=== PATIENT | female | born 1935 | race African-American/Black ===

== ENCOUNTER 2016-08-22 00:26 | Emergency (ER) | payer MEDICARE ==
[~2016-08-22] VITALS: Ht 165.1 cm; Wt 81.8 kg
[2016-08-22] MEDS ORDERED: AMLO-511 PO (01:27)
[2016-08-22] MEDS ORDERED: CHOL200018 PO (01:27)
[2016-08-22] MEDS ORDERED: MULT-1259 PO (01:27)
[2016-08-22] MEDS ORDERED: LEVO88TA7 PO (01:27)
[2016-08-22] MEDS ORDERED: ASPI81 PO (01:27)
[2016-08-22] MEDS ORDERED: ROSU10 PO (01:27)
[2016-08-22] MEDS ORDERED: VITA100C5 PO (01:27)
[2016-08-22 02:45] LABS: APPEARANCE,URINE CLEAR (CLEAR); GLUCOSE, URINE (UA) NEGATIVE (NEGATIVE); KETONES,URINE NEGATIVE (NEGATIVE); LEUKOCYTE ESTERASE ,URINE MODERATE (NEGATIVE); OCCULT BLOOD,URINE NEGATIVE (NEGATIVE); PROTEIN,URINE NEGATIVE (NEGATIVE)
[2016-08-22 02:51] LABS: ADD UA MICROSCOPIC YES
[2016-08-22 03:04] LABS: RBC,URINE 0-2 /HPF (0-2)
[2016-08-22 03:05] LABS: SQUAMOUS EPITHELIAL CELL,UR Few /LPF (None Seen)
[2016-08-22 05:41] VITALS: BP 148/76
== END 2016-08-22 05:59 | disposition home or self-care (01) ==
LOC: EMS 00:28
DX: I10 Essential (primary) hypertension (principal); E03.9 Hypothyroidism, unspecified; Z79.82 Long term (current) use of aspirin
CPT/HCPCS: 87086; 99284

== ENCOUNTER 2024-05-12 08:55 | Emergency (ER) | payer MEDICARE, OTHER ==
[~2024-05-12] VITALS: Ht 165.1 cm; Wt 85.9 kg
[2024-05-12 08:55] VITALS: TEMP 97.6
[~2024-05-12 08:55] MED LIST: AMLO-257 PO; ASPI-1450 PO; CHOL200018 PO; LEVO88TA7 PO; MULT-1259 PO; ROSU10TA72 PO; VITA100C5 PO
[2024-05-12 10:40] LABS: BASOPHILS % (AUTO) 1.7 % (0.0-2.0); EOSINOPHILS % (AUTO) 1.9 % (1.0-6.0); HEMATOCRIT 43.4 % (36-46); HEMOGLOBIN 14.6 g/dL (12.0-16.0); LYMPHOCYTES # (AUTO) 1.1 K/uL (1.0-4.8); LYMPHOCYTES % (AUTO) 25.4 % (22.0-44.0); MEAN CORPUSCULAR HEMOGLOBIN 31.3 pg (26.0-34.0); MEAN CORPUSCULAR HGB CONC 33.7 G/dL (31.0-37.0); MEAN CORPUSCULAR VOLUME 93 fL (80-100); MONOCYTES # (AUTO) 0.4 K/uL (0.1-1.0); NEUTROPHILS # (AUTO) 2.7 K/uL (1.8-7.7); PLATELET COUNT (AUTO) 241 K/uL (150-450); RED BLOOD CELL COUNT(AUTO) 4.67 MIL/uL (4.00-5.20); RED CELL DISTRIBUTION WIDTH 14.8 % (11.5-14.5); WHITE BLOOD COUNT (AUTO) 4.3 K/uL (4.5-11.0)
[2024-05-12 10:48] LABS: ANION GAP 7 mmol/L (8-16); CALCIUM, TOTAL 9.9 mg/dL (8.8-10.5); CARBON DIOXIDE 29 mmol/L (22-29); CHLORIDE 107 mmol/L (98-107); CREATININE 0.95 mg/dL (0.60-1.30); GLOMERULAR FILTR. RATE CALC > 60 mL/min (>60); GLUCOSE,RANDOM 126 mg/dL (70-110); POTASSIUM 3.4 mmol/L (3.5-5.1); SODIUM SERUM 143 mmol/L (136-145); UREA NITROGEN, BLOOD 13 mg/dL (7-18)
[2024-05-12 10:56] LABS: TROPONIN I-HIGH SENSITIVITY 13 ng/L (<51)
[2024-05-12 11:15] VITALS: BP 147/65; PULSE 96; RESP 18; O2SAT 97
== END 2024-05-12 11:45 | disposition home or self-care (01) ==
LOC: EMS 08:55
DX: R53.1 Weakness (principal); E78.00 Pure hypercholesterolemia, unspecified; I10 Essential (primary) hypertension; E03.9 Hypothyroidism, unspecified; Z79.82 Long term (current) use of aspirin; Z79.899 Other long term (current) drug therapy
CPT/HCPCS: 71045; 80048; 83880; 84484; 85025; 85730; 93005; 99285; 36415-L1; 36415-TC